=== PATIENT | male | born 2000 | race Caucasian/White ===

== ENCOUNTER 2020-06-01 15:02 | Emergency (ER) | payer SELFPAY ==
[2020-06-01 15:06] VITALS: BP 155/70; PULSE 96; RESP 18; TEMP 36.3; O2SAT 100
--- NOTE | 2020-06-01 15:27 | ED_ITS ---
HPI - Psych General: Chief Complaint: Psychiatric Symptoms Stated Complaint: SONDRA PATEL Time Seen by Provider: 06/01/20 15:26 History of Present Illness: HPI Narrative: 19-year-old male presents emergency room via EMS acutely intoxicated with suicidal ideation. He cannot voice a specific plan. Patient is repeatedly crying that he needs his mother. He smokes some organic substance that we could not understand the name of. He also admits to drinking alcohol. He denies previous hospitalization. At this point he is acutely psychotic from the medication use. Later in the visit patient became more lucid and was far less emotional. He was awake and alert answered questions appropriately or as initially he could not answer any questions whatsoever about time place or person. He was initially confused as to where he was but once he was told the specifics of where he was and how he had arrived here he was upset. He states he has no plan on harming himself he did admit to using some drugs as well as drinking alcohol. He was angry that his girlfriend or friends had called the ambulance and that he was brought to the hospital here. He vocalizes multiple times that he has no intention of harming himself and never did. He cannot recall when I first seen him. MD complaint: suicidal ideation and altered mental status Onset (ago): minute(s) Review of Systems Const: Denies: fever(s), chills, body aches, change in appetite, fatigue or malaise ENMT: Denies: throat pain, ear or mastoid pain, nasal discharge or nasal congestion Card: Denies: chest pain, edema, dyspnea on exertion or orthopnea Resp: Denies: dyspnea, productive cough or non-productive cough GI: Denies: abdominal pain, nausea, vomiting, hematemesis, coffee ground emesis, diarrhea, constipation, bloating, hematochezia or melena : Denies: flank pain, dysuria, urinary frequency or urinary urgency Skin/Breast: Denies: rash or pruritus Physical Exam Const: COMMON NORMALS: no acute distress GENERAL APPEARANCE: cooperative and comfortable ORIENTATION/CONSCIOUSNESS: Yes awake, Yes oriented to person, Yes oriented to place and Yes oriented to time HENMT: COMMON NORMALS: normocephalic, atraumatic, hearing grossly normal bilaterally, external ears normal, EAC's normal, TM's normal bilaterally, Normal nasal mucous membranes and turbinates present, moist oral mucous membranes and oropharynx normal HEAD & SCALP: normocephalic and atraumatic NOSE: Normal nasal mucous membranes and turbinates present EXTERNAL EAR: Yes external ears normal EXTERNAL AUDITORY CANAL: EAC's normal TYMPANIC MEMBRANE: TM's normal bilaterally Eye: COMMON NORMALS: Equal, round and reactive pupils present, EOMs intact bilaterally, conjunctivae normal and no scleral icterus CONJUNCTIVA: Yes conjunctivae normal PUPIL: Yes Equal, round and reactive pupils present Neck/C-Spine: COMMON NORMALS: full ROM, no lymphadenopathy, supple and no JVD Resp: COMMON NORMALS: normal respiratory effort, No retractions, No use of accessory muscles and clear to auscultation bilaterally AUSCULTATION: clear to auscultation bilaterally Cardio: COMMON NORMALS: no JVD, regular rate, regular rhythm and No murmurs present (Cardio) RATE: regular rate RHYTHM: regular rhythm GI: COMMON NORMALS: Soft to palpation and No hepatosplenomegaly present AUSCULTATION: Yes normoactive bowel sounds PALPATION: Yes Soft to palpation, No Tenderness to palpation present (GI), No Guarding due to palpation present (GI) and Yes No hepatosplenomegaly present Extremity: COMMON NORMALS: normal to inspection, capillary refill normal, no clubbing, cyanosis or edema, no calf tenderness and no pedal edema Neuro: SENSORIUM/ORIENTATION: Yes oriented to person, Yes oriented to place and Yes oriented to time Skin: COMMON NORMALS: no rashes or lesions noted GENERAL SKIN EXAM: no rashes or lesions noted MDM - Psych MDM Narrative: Medical decision making narrative: Initially when the patient arrived he had an acute psychotic phase most likely from his drugs. He admits to heavy alcohol use as well as doing some drugs. Once the effect of the drugs had resolved he was quite lucid he cannot recall anything and he has no intention of harming himself or anyone else. He had a transient psychotic episode induced by illicit drug use. It is completely resolved and he has no intent of harming himself or anyone else. At this point patient presents no harm to himself to himself or anyone else. Encouraged him to stop using various substances discussed with him what it happened as a result of it and. He expresses understanding of it and states he has no desire to use anymore drugs. He does state he will probably continue to drink alcohol. All of his symptoms have completely resolved and I believe he is safe to discharge him home. I reinterviewed the patient 2 times all 2 times after he become more lucid he denied any suicidal or homicidal ideation Lab Data: Labs: Lab Results 06/01/20 06/01/20 Range/Units 14:00 14:00 WBC 5.4 (4.5-13.0) 10^3/ uL RBC 5.45 H (4.1-5.3) 10^6/u L Hgb 16.1 (11.7-16.6) g/dL Hct 47.7 (42.0-52.0) % MCV 87.5 (80-94) fL MCH 29.5 (28.0-34.0) pg MCHC 33.8 (30.0-36.0) g/dL RDW 12.8 (12.1-15.1) % Plt Count 253 (130-400) 10^3/c mm MPV 10.6 H (7.4-10.4) fL Neut % (Auto) 62.1 % Lymph % (Auto) 28.5 % [place] % (Auto) 7.1 % Eos % (Auto) 0.9 % Baso % (Auto) 0.7 % Neut # (Auto) 3.32 (1.8-8.0) 10^3/u L Lymph # (Auto) 1.5 (1.5-6.5) 10^3/u L [place] # (Auto) 0.4 (0.2-0.9) 10^3/u L Eos # (Auto) 0.1 (0.0-0.8) 10^3/u L Baso # (Auto) 0.0 (0.0-0.1) 10^3/u L Nucleated RBC % (a uto) 0 % Nucleated RBCs # 0.0 /100WBC Sodium 145 (136-145) mmol/L Potassium 3.7 (3.5-5.1) mmol/L Chloride 108 H (98-107) mmol/L Carbon Dioxide 24 (22-29) mmol/L Anion Gap 16.7 (5-19) BUN 6 (6-20) mg/dL Creatinine 0.7 (0.7-1.2) mg/dL GFR Calculation 143.8 H (90-130) mL/min Glucose 75 (65-115) mg/dL Calculated Osmolal ity 296 H (285-295) mOsm/k g Calcium 9.1 (8.5-10.5) mg/dL Total Bilirubin 0.4 (0.15-1.2) mg/dL AST 20 (0-40) U/L ALT 16 (0-41) U/L Alkaline Phosphata se 90 (40-130) IU/L Total Protein 7.5 (6.6-8.7) g/dL Albumin 4.5 (3.5-5.2) g/dL Globulin 3.0 (1.3-4.6) g/dL Salicylates < 0.3 L (3-10) mg/dL Acetaminophen < 5.0 L (10-30) ug/mL Discharge Plan Discharge Patient Disposition: Home Clinical Impression: Drug-induced psychotic disorder Condition: Stable Prescriptions: No Action No Known Home Medications RF: 0 Discharge Orders: Discharge ED (Routine); Ordered 06/01/20 Ordered By: Nino Momin Discharge Diet: Usual diet Discharge Activity: Resume usual activity Patient Instructions: Opioid Safety Coding Level of Care Code ED 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
[2020-06-01 15:52] LABS: Basophils % 0.7 %; Eosinophils # 0.1 10^3/uL (0.0-0.8); Eosinophils % 0.9 %; Hematocrit 47.7 % (42.0-52.0); Hemoglobin 16.1 g/dL (11.7-16.6); Lymphocytes # 1.5 10^3/uL (1.5-6.5); Lymphocytes % 28.5 %; Mean Corpuscular HGB Conc 33.8 g/dL (30.0-36.0); Mean Corpuscular Hemoglobin 29.5 pg (28.0-34.0); Mean Corpuscular Volume 87.5 fL (80-94); Mean Platelet Volume 10.6 fL (7.4-10.4); Monocytes # 0.4 10^3/uL (0.2-0.9); Monocytes % 7.1 %; Neutrophils # 3.32 10^3/uL (1.8-8.0); Neutrophils % 62.1 %; Nucleated Red Blood Cells % 0 %; Platelet Count 253 10^3/cmm (130-400); Red Blood Count 5.45 10^6/uL (4.1-5.3); Red Cell Distribution Width 12.8 % (12.1-15.1); White Blood Count 5.4 10^3/uL (4.5-13.0)
[2020-06-01] MEDS: sodium chloride 0.9% 1,000 ML 999 ML IV (16:08)
[2020-06-01 16:29] LABS: Alanine Aminotransferase 16 U/L (0-41); Albumin Level 4.5 g/dL (3.5-5.2); Alkaline Phosphatase 90 IU/L (40-130); Anion Gap 16.7 (5-19); Aspartate Amino Transferase 20 U/L (0-40); Blood Urea Nitrogen 6 mg/dL (6-20); Calcium 9.1 mg/dL (8.5-10.5); Carbon Dioxide 24 mmol/L (22-29); Chloride 108 mmol/L (98-107); Glomerular Filtration Rate 143.8 mL/min (90-130); Glucose 75 mg/dL (65-115); Osmolality Calculated 296 mOsm/kg (285-295); Potassium 3.7 mmol/L (3.5-5.1); Sodium 145 mmol/L (136-145); Total Bilirubin 0.4 mg/dL (0.15-1.2); Total Protein 7.5 g/dL (6.6-8.7)
[2020-06-01 16:30] LABS: Acetaminophen < 5.0 ug/mL (10-30); Salicylate < 0.3 mg/dL (3-10)
[2020-06-01 17:17] VITALS: BP 148/71; PULSE 91; RESP 13; O2SAT 97
== END 2020-06-01 17:20 | disposition home or self-care (01) ==
PROVIDERS: Emergency Provider Family Medicine
DX: F19.959 Other psychoactive substance use, unspecified with psychoactive substance-induced psychotic disorder, unspecified (principal)
CPT/HCPCS: 80053; 80307; 85025; 96360; 99284; J7030